=== PATIENT | female | born 1970 | race Caucasian/White ===

== ENCOUNTER 2017-12-03 15:40 | Emergency (ER) | payer BC ==
--- OUTSIDE RECORDS SUMMARY | 2017-12-03 15:43 | XMS REPORT ---
:1970 Author Organization eClinicalWorks Care Team Providers Name Role Phone Arcenio [facility] Provider Role Unavailable Allergies, Adverse Reactions, Alerts Substance Reaction Event Type N.K.D.A. Info Not Available Non Drug Allergy Problems Problem Type Condition Code Onset Dates Condition Status Problem GERD (gastroesophageal reflux K21.9 Active disease) Problem Hemorrhoids K64.9 Active Problem Vitamin D deficiency E55.9 Active Problem Iron deficiency anemia D50.9 Active Problem Hyperlipidemia, mixed E78.2 Active Medications Medication Code Code Instructions Start End Status Dosage System Date Date Omeprazole [facility] 67406566477 20 MG Orally Active 1 capsule Once a day Ferrous [facility] 20030519147 325 (65 Fe) MG Active 1 tablet Sulfate Orally Once a day Results No Known Results Summary Purpose eClinicalWorks Submission
--- OUTSIDE RECORDS SUMMARY | 2017-12-03 15:43 | XMS REPORT ---
:1970 Author Organization eClinicalWorks Care Team Providers Name Role Phone Arcenio Isreal Provider Role Unavailable Allergies No Known Allergies Problems Problem Type Condition Code Onset Dates Condition Status Problem GERD (gastroesophageal reflux K21.9 Active disease) Problem Hemorrhoids K64.9 Active Problem Vitamin D deficiency E55.9 Active Problem Iron deficiency anemia D50.9 Active Problem Hyperlipidemia, mixed E78.2 Active Medications No Known Medications Results No Known Results Summary Purpose eClinicalWorks Submission
--- OUTSIDE RECORDS SUMMARY | 2017-12-03 15:43 | XMS REPORT ---
:1970 Author Organization eClinicalWorks Care Team Providers Name Role Phone Arcenio Isreal Provider Role Unavailable Allergies No Known Allergies Problems Problem Type Condition Code Onset Dates Condition Status Problem GERD (gastroesophageal reflux K21.9 Active disease) Problem Hemorrhoids K64.9 Active Problem Vitamin D deficiency E55.9 Active Assessment Epigastric pain R10.13 Active Problem Iron deficiency anemia D50.9 Active Problem Hyperlipidemia, mixed E78.2 Active Medications Medication Code Code Instructions Start End Status Dosage System Date Date Pantoprazole [facility] [id number] 40 MG Orally November 18, Active 1 tablet Sodium Once a day 2017 Results No Known Results Summary Purpose eClinicalWorks Submission
[2017-12-03 16:58] LABS: Urine Bacteria >50 /HPF (<20); Urine Culture Reflex Order REFLEXED; Urine Mucus 1+ /HPF (NONE SEEN); Urine RBC <5 /HPF (NONE SEEN)
[2017-12-03 17:00] LABS: Absolute Lymphocytes (CBC) 1.4 K/uL (0.7-4.9); Absolute Monocytes 0.6 K/uL (0.1-1.3); Absolute Neutrophil 7.8 K/uL (1.8-8.0); Basophils % 0.4 % (0-1.3); Hematocrit 32.7 % (36.0-45.0); Lymphocytes % 14.5 % (15.3-44.8); MCH 24.9 pg (27.0-35.0); MCV 77.7 fL (80-100); MPV 7.1 fL (7.6-11.3); RBC Red Blood Cell Count 4.21 M/uL (3.86-4.86)
[2017-12-03 17:06] LABS: Urine Blood 1+ (NEG); Urine Glucose NEGATIVE (NEG); Urine Protein 2+ (NEG); Urine Specific Gravity 1.025 (1.005-1.030); Urine pH 5.5 (5.0-7.0)
[2017-12-03] MEDS ORDERED: NA CHLORIDE 0.9% 1,000 ML ONE (17:06)
[2017-12-03 17:21] LABS: Bicarbonate 26 mEq/L (21-31); Glucose Level 88 mg/dL (65-120); Lipase 20 U/L (22-51); Potassium 3.6 mEq/L (3.6-5.0); Sodium Level 131 mEq/L (135-145)
[2017-12-03 17:27] LABS: ALT/SGPT 8 IU/L (10-60); AST/SGOT 10 IU/L (10-42); Albumin 3.7 g/dL (3.2-5.5); Alkaline Phosphatase 57 IU/L (42-121); Amylase Level 32 U/L (28-100); BUN Blood Urea Nitrogen 8 mg/dL (6-20); Bilirubin Direct 0.1 mg/dL (0-0.2); Bilirubin Total 0.6 mg/dL (0.3-1.2); Protein, Total 8.6 g/dL (6.0-8.3)
--- NOTE | 2017-12-03 18:25 | RAD REPORT ---
EXAM DESCRIPTION: CTAbdomen Pelvis W Contrast - 12/03/2017 6:04 pm CLINICAL HISTORY: Abdominal pain. COMPARISON: 03/26/2011 TECHNIQUE: Biphasic CT imaging of the abdomen and pelvis was performed with 100 ml non-ionic IV cont rast. All CT scans are performed using dose optimization technique as appropriate and may include automated exposure control or mA/KV adjustment according to patient size. FINDINGS: The lung bases are clear.A gastric band is present. The band is more inferiorly located th an ideal position at the level of the body of the stomach. The proximal aspect of the stomach shows s ignificant wall thickening. The liver, spleen, pancreas, adrenal glands and kidneys are within normal limits. No bowel obstruction, free air, free fluid or abscess. Sigmoid diverticulosis coli without diverticul itis. The appendix is normal. No evidence of significant lymphadenopathy. No suspicious bony findings. IMPRESSION: Gastric banding is positioned lower than ideal at the level of the body of the stomach. The proximal aspect of the stomach shows inflammatory changes compatible with gastric inflammation.
[2017-12-03] MEDS ORDERED: PANTOPRAZOLE 40 MG INJ ONE (18:38)
[2017-12-03] MEDS ORDERED: MAGNE/ALUM HYDROXD 30 ML UCUP ONE (18:38)
[2017-12-03] MEDS ORDERED: LIDOCAINE VISCOUS 2% SOLN 15 ML UDC ONE (18:38)
[2017-12-03] MEDS ORDERED: FENTANYL CITR 100 MCG/2 ML ONE (19:24)
--- NOTE | 2017-12-03 20:11 | EDPHYS ---
Physician Documentation [facility] Name: Mily Bauman Age: 46 yrs Sex: Female : 1970 Arrival Date: 12/03/2017 Time: 15:43 Bed 14 Private MD: Arcenio [facility] ED Physician Luis Crooks HPI: 12/03 16:35 This 46 yrs old Female presents to ER via Ambulatory with complaints of cp Abdominal Pain. 16:35 The patient presents with abdominal pain in the epigastric area, in the upper abdomen. cp Onset: The symptoms/episode began/occurred 2 week(s) ago, and became worse yesterday, and became persistent yesterday. The symptoms radiate to back. Associated signs and symptoms: Pertinent positives: nausea and vomiting, anorexia, constipation, Pertinent negatives: blood in stools, chest pain, diarrhea, fever. 16:35 The patient has been recently seen by a physician: the patient's primary care provider, cp with similar presenting complaints, an ultrasound was done. 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 - Social history:: Smoking status: Patient/guardian denies using tobacco. - Ebola Screening: : Patient negative for fever greater than or equal to 101.5 degrees Fahrenheit, and additional compatible Ebola Virus Disease symptoms Patient denies exposure to infectious person Patient denies travel to an Ebola-affected area in the 21 days before illness onset No symptoms or risks identified at this time. ROS: 16:39 Constitutional: Negative for body aches, chills, fever, poor PO intake. cp 16:39 Eyes: Negative for injury, pain, redness, and discharge. cp 16:39 ENT: Negative for drainage from ear(s), ear pain, sore throat, difficulty swallowing, difficulty handling secretions, hoarseness. 16:39 Cardiovascular: Negative for chest pain, edema, palpitations. 16:39 Respiratory: Negative for cough, shortness of breath, wheezing. 16:39 Abdomen/GI: Positive for abdominal pain, nausea, vomiting, Negative for diarrhea, constipation, dysphagia, hematemesis, black/tarry stool, rectal bleeding. 16:39 Back: Positive for radiated pain, of the mid back area, Negative for decreased range of motion. 16:39 : Negative for urinary symptoms, flank pain. 16:39 Skin: Negative for cellulitis, rash. 16:39 Neuro: Negative for altered mental status, dizziness, headache, syncope, near syncope, weakness. 16:39 All other systems are negative. Exam: 16:45 Constitutional: The patient appears in no acute distress, alert, awake, cp non-diaphoretic, non-toxic, well developed, well nourished, uncomfortable. 16:45 Head/Face: Normocephalic, atraumatic. Eyes: Pupils equal round and reactive to light, cp extra-ocular motions intact. Lids and lashes normal. Conjunctiva and sclera are non-icteric and not injected. Cornea within normal limits. Periorbital areas with no swelling, redness, or edema. ENT: Nares patent. No nasal discharge, no septal abnormalities noted. Tympanic membranes are normal and external auditory canals are clear. Oropharynx with no redness, swelling, or masses, exudates, or evidence of obstruction, uvula midline. Mucous membranes moist. Chest/axilla: Normal chest wall appearance and motion. Nontender with no deformity. No lesions are appreciated. 16:45 Cardiovascular: Rate: normal, Rhythm: regular, Edema: is not appreciated, JVD: is not appreciated. 16:45 Respiratory: the patient does not display signs of respiratory distress, Respirations: normal, no use of accessory muscles, no retractions, no splinting, no tachypnea, labored breathing, is not present, Breath sounds: are clear throughout, no decreased breath sounds, no stridor, no wheezing. 16:45 Abdomen/GI: Inspection: abdomen appears normal, Bowel sounds: active, all quadrants, Palpation: soft, in all quadrants, moderate abdominal tenderness, in the epigastric area, right upper quadrant and left upper quadrant, rebound tenderness, is not appreciated, voluntary guarding, is elicited in the epigastric area, right upper quadrant and left upper quadrant. 16:45 Back: pain, that is mild, of the mid back area, ROM is normal. 16:45 Skin: cellulitis, is not appreciated, no rash present. 16:45 Neuro: Orientation: to person, place \T\ time. Mentation: lucid, able to follow commands, Cerebellar function: is grossly normal, Motor: moves all fours, strength is normal, Sensation: is normal. Vital Signs: 16:01 BP 135 / 89; Pulse 85; Resp 16; Temp 98.3; Pulse Ox 100% on R/A; Weight 73.48 kg; ph Height 5 ft. 3 in. (160.02 cm); Pain 6/10; 17:10 BP 138 / 85; Pulse 71; Resp 15; Pulse Ox 100% on R/A; mh5 18:23 BP 124 / 83; Pulse 83; Resp 16; Pulse Ox 99% on R/A; aj 19:30 BP 135 / 104; Pulse 85; Resp 18; Pulse Ox 96% ; Pain 7/10; cr4 20:30 BP 157 / 82; Pulse 86; Resp 16; Pulse Ox 98% ; Pain 4/10; cr4 16:01 Body Mass Index 28.70 (73.48 kg, 160.02 cm) ph MDM: 16:04 Patient medically screened. cp 17:00 Differential diagnosis: bowel obstruction, cholecystitis, Cholelithiasis, gastritis, cp pancreatitis, Peptic Ulcer Disease, Perf. Duodenal Ulcer, Perf. Gastric Ulcer, Pyelonephritis, Ureterolithiasis, urinary tract infection. 20:10 Data reviewed: vital signs, nurses notes, old medical records, results of abdominal US cp done yesterday that was negative for acute findings lab test result(s), radiologic studies, CT scan. 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 Response to treatment: the patient's symptoms have markedly improved after treatment, nausea improved and no vomiting observed in ED, and as a result, I will discharge patient. 12/03 16: Order name: Amylase, Serum; Complete Time: 18:31 cp 12/03 16:26 Order name: Basic Metabolic Panel; Complete Time: 18:31 cp 12/03 18:31 Interpretation: Normal except: NA 131; CL 95. cp 12/03 16:26 Order name: CBC with Diff; Complete Time: 17:08 cp 12/03 17:09 Interpretation: Normal except: HGB 10.5; HCT 32.7; MCV 77.7; MCH 24.9; PLT 542; RDW cp 16.5; MPV 7.1; PASTORA% 78.1; LYM% 14.5. 12/03 16:26 Order name: Creatinine for Radiology; Complete Time: 18:31 cp 12/03 16:26 Order name: Hepatic Function; Complete Time: 18:31 cp 12/03 18:31 Interpretation: Normal except: SGPT 8; TP 8.6; GLOB 4.9; A/G 0.8. cp 12/03 16: Order name: Lipase; Complete Time: 18:31 cp 12/03 18:31 Interpretation: LIP 20; Reviewed. cp 12/03 16:26 Order name: Urine Microscopic Only; Complete Time: 17:08 cp 12/03 17:09 Interpretation: Normal except: UBACT >50; SQEPI 5-10. cp 12/03 16:26 Order name: CT Abd/Pelvis - W/Contrast: give oral contrast; Complete Time: 18:31 cp 12/03 16:44 Order name: Urine Dipstick--Ancillary (enter results); Complete Time: 17:08 ag 12/03 17:09 Interpretation: Normal except: UKET 4+; UBLD 1+; UPROT 2+; UESTR TRACE. cp 12/03 16:44 Order name: Urine --Ancillary (enter results); Complete Time: 17:08 ag 12/03 17:01 Order name: Urine Culture EDME 12/03 16:26 Order name: IV Saline Lock; Complete Time: 16:56 cp 12/03 16:26 Order name: Labs collected and sent; Complete Time: 16:56 cp 12/03 16:26 Order name: Urine Dipstick-Ancillary (obtain specimen); Complete Time: 16:56 cp Administered Medications: 17:07 Drug: NS 0.9% 1000 ml Route: IV; Rate: 1 bolus; Site: left antecubital; aj 18:42 Follow up: Response: No adverse reaction; IV Status: Completed infusion; IV Intake: aj 1000ml 18:42 Drug: ProTONIX 40 mg Route: IVP; Site: left antecubital; aj 19:34 Follow up: Response: No adverse reaction cr4 18:42 Drug: GI Cocktail without - (Maalox Suspension 30 ml, Lidocaine Liquid 2 % 15 aj ml) Route: PO; 19:35 Follow up: Response: No adverse reaction; Pain is unchanged, physician notified cr4 19:25 Drug: fentaNYL (PF) 25 mcg Route: IVP; Site: left antecubital; cr4 19:50 Follow up: Response: No adverse reaction; Pain is decreased cr4 Disposition: 12/03/17 20:11 Discharged to Home. Impression: Epigastric pain. - Condition is Stable. - Discharge Instructions: Gastritis, Adult. - Prescriptions for Carafate 1 gram Oral Tablet - take 1 tablet by ORAL route 4 times per day take on an empty stomach, beginning on waking and last dose at bedtime. dissolve tablet in warm water prior to ingestion; 100 tablet. Protonix 40 mg Oral Tablet - take 1 tablet by ORAL route once daily; 30 tablet. Tylenol- Codeine #3 300-30 mg Oral Tablet - take 2 tablets by ORAL route every 6 hours As needed; 15 tablet. - Medication Reconciliation Form, Thank You Letter, Antibiotic Education, Prescription Opioid Use form. - Follow up: Filiberto Houston MD; When: 2 - 3 days; Reason: epigastric pain. - Problem is an ongoing problem. - Symptoms have improved. Addendum: 12/07/2017 09:12 Co-signature as Attending Physician, Luis Crooks MD I agree with the assessment and c dasilva plan of care. Signatures: Dispatcher [employer] EDJosie Ridley RN RN aj Anderson, Corey, MD MD cha Ruiz, Claudia RN RN cr4 Penny Palm RN RN Luis Willis, MARLEY ROACH cp Corrections: (The following items were deleted from the chart) 12/03 20:44 20:11 12/03/2017 20:11 Discharged to Home. Impression: Epigastric pain. Condition is cr4 Stable. Forms are Medication Reconciliation Form, Thank You Letter, Antibiotic Education, Prescription Opioid Use. Follow up: Filiberto Houston; When: 2 - 3 days; Reason: epigastric pain. Problem is an ongoing problem. Symptoms have improved. cp
--- NOTE | 2017-12-03 20:11 | ER ---
Nurse's Notes [facility] Name: Mily Bauman Age: 46 yrs Sex: Female : 1970 Arrival Date: 12/03/2017 Time: 15:43 Bed 14 Private MD: Isreal Rg Diagnosis: Epigastric pain Presentation: 12/03 15:59 Presenting complaint: Patient states: " I am having bad abdominal pain. I saw Dr Arcenio jacinto and had an US done yesterday but I'm not sure about the results. He said if ZI was still hurting really bad to come here." Pt reports epigastric pain that radiates to LUQ and back, also reports N/V and bloating. Transition of care: patient was not received from another setting of care. Onset of symptoms was December 03, 2017. Risk Assessment: Do you want to hurt yourself or someone else? Patient reports no desire to harm self or others. Initial Sepsis Screen: Does the patient meet any 2 criteria? No. Patient's initial sepsis screen is negative. Does the patient have a suspected source of infection? No. Patient's initial sepsis screen is negative. Care prior to arrival: None. 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 - Social history:: Smoking status: Patient/guardian denies using tobacco. - Ebola Screening: : Patient negative for fever greater than or equal to 101.5 degrees Fahrenheit, and additional compatible Ebola Virus Disease symptoms Patient denies exposure to infectious person Patient denies travel to an Ebola-affected area in the 21 days before illness onset No symptoms or risks identified at this time. Screenin:23 Abuse screen: Denies threats or abuse. Denies injuries from another. Nutritional aj screening: No deficits noted. Tuberculosis screening: No symptoms or risk factors identified. Fall Risk None identified. Assessment: 18:23 General: Appears in no apparent distress. comfortable, Behavior is calm, cooperative, aj appropriate for age. Pain: Complains of pain in posterior aspect of right lateral abdomen, anterior aspect of right lateral abdomen, right upper quadrant and left upper quadrant. Neuro: Level of Consciousness is awake, alert, obeys commands, Oriented to person, place, time, situation, Appropriate for age. Respiratory: Airway is patent Respiratory effort is even, unlabored, Respiratory pattern is regular, symmetrical. GI: Abdomen is flat, non-distended, Abd is soft and non tender X 4 quads. Reports upper abdominal pain, nausea, vomiting. Derm: Skin is intact, is healthy with good turgor, Skin is pink, warm \\T\\ dry. normal. 19:06 Reassessment: No changes from previously documented assessment. Patient and/or family cr4 updated on plan of care and expected duration. Pain level reassessed. Patient is alert, oriented x 3, equal unlabored respirations, skin warm/dry/pink. 19:07 General: Page PA in to see patient. cr4 19:40 Reassessment: Patient and/or family updated on plan of care and expected duration. Pain cr4 level reassessed. Patient states feeling better. Patient states symptoms have improved. 20:30 Reassessment: Patient and/or family updated on plan of care and expected duration. Pain cr4 level reassessed. Patient is alert, oriented x 3, equal unlabored respirations, skin warm/dry/pink. Patient states feeling better. Patient states symptoms have improved. Vital Signs: 16:01 BP 135 / 89; Pulse 85; Resp 16; Temp 98.3; Pulse Ox 100% on R/A; Weight 73.48 kg; ph Height 5 ft. 3 in. (160.02 cm); Pain 6/10; 17:10 BP 138 / 85; Pulse 71; Resp 15; Pulse Ox 100% on R/A; mh5 18:23 BP 124 / 83; Pulse 83; Resp 16; Pulse Ox 99% on R/A; aj 19:30 BP 135 / 104; Pulse 85; Resp 18; Pulse Ox 96% ; Pain 7/10; cr4 20:30 BP 157 / 82; Pulse 86; Resp 16; Pulse Ox 98% ; Pain 4/10; cr4 16:01 Body Mass Index 28.70 (73.48 kg, 160.02 cm) ph ED Course: 15:43 Patient arrived in ED. mr 15:44 Isreal Rg DO is Private Physician. mr 16:00 Triage completed. ph 16:02 Arm band placed on. ph 16:04 Luis Cho PA is PHCP. cp 16:04 Luis Crooks MD is Attending Physician. cp 16:26 Josie Meneses, BAYLEE is Primary Nurse. aj 16:39 Urine collected: clean catch specimen, cloudy. [facility] 16:53 Initial lab(s) drawn, by mn, sent to lab. Inserted saline lock: 20 gauge in left [facility] antecubital area, using aseptic technique. Blood collected. 16:54 Urine --Ancillary (enter results) Sent. 5 16:54 Urine Dipstick--Ancillary (enter results) Sent. [facility] 16:55 Amylase, Serum Sent. 5 16:55 Basic Metabolic Panel Sent. [facility] 16:55 CBC with Diff Sent. [facility] 16:55 Creatinine for Radiology Sent. [facility] 16:55 Hepatic Function Sent. [facility] 16:55 Lipase Sent. [facility] 16:56 Urine Microscopic Only Sent. [facility] 17:[address] 2 18:02 CT Abd/Pelvis - W/Contrast: give oral contrast In Process Unspecified. EDMS 18:08 CT completed. Patient tolerated procedure well. Patient moved back from CT. 3 18:23 Patient has correct armband on for positive identification. aj 19:06 Warm blanket given. cr4 20:10 Filiberto Houston MD is Referral Physician. cp 20:42 No provider procedures requiring assistance completed. intact, bleeding controlled, No cr4 redness/swelling at site. Administered Medications: 17:07 Drug: NS 0.9% 1000 ml Route: IV; Rate: 1 bolus; Site: left antecubital; aj 18:42 Follow up: Response: No adverse reaction; IV Status: Completed infusion; IV Intake: aj 1000ml 18:42 Drug: ProTONIX 40 mg Route: IVP; Site: left antecubital; aj 19:34 Follow up: Response: No adverse reaction cr4 18:42 Drug: GI Cocktail without - (Maalox Suspension 30 ml, Lidocaine Liquid 2 % 15 aj ml) Route: PO; 19:35 Follow up: Response: No adverse reaction; Pain is unchanged, physician notified cr4 19:25 Drug: fentaNYL (PF) 25 mcg Route: IVP; Site: left antecubital; cr4 19:50 Follow up: Response: No adverse reaction; Pain is decreased cr4 Intake: 18:42 IV: 1000ml; Total: 1000ml. aj Outcome: 20:11 Discharge ordered by . cp 20:35 Discharged to home ambulatory, with family. cr4 20:35 Condition: stable 20:35 Discharge instructions given to patient, significant other, Instructed on discharge instructions, follow up and referral plans. medication usage, Demonstrated understanding of instructions, follow-up care, medications, Prescriptions given X 3. 20:44 Patient left the ED. cr4 Signatures: Dispatcher [employer] EDJosie Ridley RN RN aj Rivera, Maria mr Ruiz, Claudia RN RN cr4 Penny Palm RN RN Luis Willis PA PA cp Martinez, Maria [facility] [address] [place] mw3
[2017-12-03 20:48] VITALS: TEMP 98.3
[2017-12-03 20:53] VITALS: BP 157/82; O2SAT 98
== END 2017-12-03 20:44 | disposition home or self-care (01) ==
LOC: ER 15:40
DX: R10.13 Epigastric pain (principal)
CPT/HCPCS: 36415; 74177; 80048; 80076; 81003; 81015; 81025; 82150; 83690; 85025; 87086; 87088; 96361; 96374; 96375; 99284; C9113; J3010; J7030